=== PATIENT | male | born 1970 | race Caucasian/White ===

== ENCOUNTER 2022-10-19 14:30 | Emergency (ER) | payer OTHER, SELFPAY ==
[2022-10-19 14:46] VITALS: BP 128/84; PULSE 100; RESP 18; TEMP 37; O2SAT 97; BMI 34.8
--- NOTE | 2022-10-19 15:04 | XR_ITS ---
WS: [id number] Right hand, 3 views, 10/19/2022 Clinical Data: smash injury to 2nd digit Comparison: None. Findings: No fractures or dislocations are seen. The soft tissues are unremarkable. The joint space s are normal XR/XR hand RT min 3V* [id number] Impression: Negative right hand.
--- NOTE | 2022-10-19 15:05 | W.ED.EXTPRO ---
HPI - Extremity Problem General: Chief complaint: Extremity Injury, Upper Stated complaint: right finger lac Time Seen by Provider: 10/19/22 14:51 History of Present Illness: Patient is a 52-year-old male comes to the ED with right hand second digit injury. Patient says he smashed his right index finger in between his car and a ladder today. He has a laceration on the lateral aspect of finger. Endorses having right finger pain that worsens with any movement of finger. Associated symptoms: Deny chest pain, fever(s) or rash Review of Systems Const: Denies: fever(s), chills or fatigue Eyes: Denies: change in vision or eye discomfort ENMT: Denies: throat pain, odynophagia, nasal discharge or nasal congestion Card: Denies: chest pain, palpitations, edema, swelling of feet/ankles, dyspnea on exertion or orthopnea Resp: Denies: dyspnea, productive cough or non-productive cough GI: Denies: abdominal pain, nausea, vomiting, diarrhea, constipation or hematochezia : Denies: flank pain, difficulty urinating, dysuria or hematuria Musc: Denies: neck pain, back pain or extremity swelling Skin/Breast: Denies: rash or new lesions Neuro: Denies: headache(s), numbness in extremities or weakness in extremities PFSH ED PFSH: Medical History No pertinent family history Surgical History No pertinent past surgical history Physical Exam Const: COMMON NORMALS: no acute distress, patient oriented x3 and alert GENERAL APPEARANCE: cooperative and comfortable HENMT: COMMON NORMALS: normocephalic HEAD & SCALP: normocephalic MOUTH: Normal oral and palatal mucosa present THROAT: posterior oropharynx normal and uvula midline Neck/C-Spine: COMMON NORMALS: supple GENERAL: Yes normal visual inspection Resp: COMMON NORMALS: normal respiratory effort, No retractions, No use of accessory muscles and clear to auscultation bilaterally AUSCULTATION: clear to auscultation bilaterally Cardio: COMMON NORMALS: regular rate, regular rhythm, S1 normal heart sound present, S2 normal heart sound present, No gallops present (Cardio), No clicks present (Cardio), No murmurs present (Cardio) and Peripheral pulses 2+ throughout RATE: regular rate RHYTHM: regular rhythm HEART SOUNDS: S1 normal heart sound present and S2 normal heart sound present PERIPHERAL PULSES: Peripheral pulses 2+ throughout GI: COMMON NORMALS: Normal to inspection, nondistended, normoactive bowel sounds present, Soft to palpation, non-tender and no masses PALPATION: Yes Soft to palpation : COMMON NORMALS: Yes no CVA tenderness BLADDER/KIDNEY EXAM: Yes no CVA tenderness Back/Pelvis: COMMON NORMALS: no CVA tenderness Extremity: NARRATIVE EXTREMITY EXAM: Right hand?lateral aspect of second digit?2 cm linear laceration. Minimal active bleeding. Neurovascular tact distally. Limited range of motion in finger due to pain. No subungual hematoma noted. No nailbed or nail damage noted. Neuro: COMMON NORMALS: patient oriented x3 SENSORIUM/ORIENTATION: Yes alert GAIT: Yes Normal gait present Skin: GENERAL SKIN EXAM: dry skin Procedures Laceration Laceration 1: Site: hand (right hand 2nd digit) Side (If applicable): right Size (cm): 2 Description: linear Depth: simple, single layer Local Anesthetic: lidocaine 1% Pre-repair: irrigated extensively (With normal saline and beta iodine) Skin layer closed with: nylon Size (cm): 4-0 Number of sutures: 5 Technique: simple, interrupted Course Vital Signs: Vital signs: Vital Signs Temperature 98.6 F 10/19/22 14:46 Pulse Rate 100 10/19/22 14:46 Respiratory Rate 18 10/19/22 14:46 Blood Pressure 128/84 10/19/22 14:46 Pulse Oximetry 97 10/19/22 14:46 Oxygen Delivery [place] th[place] 10/19/22 14:46 MDM - Extremity (Nontraumatic) Medical Decision Making Patient is a 52-year-old male comes to the ED with right hand second digit injury. Patient says he smashed his right index finger in between his car and a ladder today. He has a laceration on the lateral aspect of finger. Vital stable. Right hand?lateral aspect of second digit?2 cm linear laceration. Minimal active bleeding. Neurovascular tact distally. Limited range of motion in finger due to pain. No subungual hematoma noted. No nailbed or nail damage noted. Patient was given updated tetanus here in the ED. Patient's wound was irrigated extensively with normal saline and beta iodine. Lidocaine 1% was used as local and 5 sutures were placed to close laceration on finger. X-ray of right hand showed no acute fractures or findings. Patient was diagnosed with finger laceration and contusion of finger and discharged home with a prescription for Keflex. Return to ED precautions given. Patient understood and agreed with plan. Lab Data Radiology Impressions Hand X-Ray 10/19/22 15:04 Impression: Negative right hand. Discharge Plan Discharge Patient Disposition: Home Clinical Impression: Contusion of finger Finger laceration Qualifiers: Encounter type: initial encounter Finger: index finger Damage to nail status: without damage Foreign body presence: without foreign body Laterality: right Qualified Code(s): S61.210A - Laceration without foreign body of right index finger without damage to nail, initial encounter Condition: Stable Prescriptions: New cephalexin 500 mg capsule 500 mg PO Q6H 7 Days Qty: 28 0RF Discharge Orders: Discharge ED (Routine); Ordered 10/19/22 Ordered By: Socrates De La Garza Discharge Diet: Regular Discharge Activity: Increase activity as tolerated Patient Instructions: Finger Laceration (ED) Activity Restrictions/Additional Instructions: Follow-up with medical provider as directed in the next 7 to 10 days for reevaluation. Clean laceration site daily with soap and water and then apply thin layer of triple antibiotic ointment on it and bandage. Have sutures removed in 7 to 10 days. Take medications as prescribed. Return to the ER or your medical provider if condition worsens. Please read and understand discharge instructions. Thank you for choosing [facility] for your healthcare needs today. Please realize this is an emergency room and that we are providing you with a medical screening exam and this may not be complete and all inclusive of all the testing and or work up that you may need to determine your ailment or severity of your illness. It is very important that you follow up as instructed or that you return to the Emergency Department should you have concerns or if your condition changes or worsens in any way. Coding Level of Care Code ED [employer] Worker for Michelle Rush Exam Comprehensive
[2022-10-19] MEDS: tetanus-diphtheria tox (adult) 0.5 mL SDV IM (15:39)
--- NOTE | 2022-10-27 15:33 | PC.NURSE ---
5 sutures removed from right index finger finger appears pt be healing well.
== END 2022-10-19 15:53 | disposition home or self-care (01) ==
PROVIDERS: Emergency Provider Physician Assistant
DX: S61.210A Laceration without foreign body of right index finger without damage to nail, initial encounter (principal); S60.021A Contusion of right index finger without damage to nail, initial encounter; W23.0XXA Caught, crushed, jammed, or pinched between moving objects, initial encounter; Z23 Encounter for immunization
CPT/HCPCS: 12001; 73130; 90471; 90714; 99283

== ENCOUNTER 2022-10-20 14:40 | Emergency (ER) | payer OTHER, SELFPAY ==
[2022-10-20 16:55] VITALS: BP 144/90; PULSE 86; RESP 18; TEMP 36.6; O2SAT 97; BMI 34.8
--- NOTE | 2022-10-20 17:14 | XRR_ITS ---
PROCEDURE INFORMATION: Exam: XR Right Finger(s) Exam date and time: 10/20/2022 5:35 PM Age: 52 years old Clinical indication: Pain; Finger(s); Right; Additional info: Crush injury to index finger TECHNIQUE: Imaging protocol: Radiologic exam of the Right fingers. Views: Minimum 2 views. COMPARISON: No relevant prior studies available. FINDINGS: Bones/joints: Osseous structures are intact. Negative for fracture. Joint spaces are preserved. Soft tissues: Normal. XR/XR finger RT min 2V [id number] IMPRESSION: No acute findings.
--- NOTE | 2022-10-20 17:20 | W.ED.EXTPRO ---
HPI - Extremity Problem General: Chief complaint: Extremity Injury, Upper Stated complaint: pain after finger injury Time Seen by Provider: 10/20/22 17:07 History of Present Illness: Patient is a 52-year-old male comes to the ED with right finger injury. Patient was seen here in the ED yesterday October 19 for same complaint. Patient had a crush injury of his index finger on right hand and had a laceration on finger as well which was treated with sutures. Today he says his fingers just been throbbing and pain and he rates it a 7 out of 10. He has been taking Tylenol and Motrin and it has not been helping his pain. His fingers are swollen and he has some limited range of motion in finger due to swelling. Associated symptoms: Deny chest pain, fever(s) or rash Review of Systems Const: Denies: fever(s), chills or fatigue Eyes: Denies: change in vision or eye discomfort ENMT: Denies: throat pain, odynophagia, nasal discharge or nasal congestion Card: Denies: chest pain, palpitations, edema, swelling of feet/ankles, dyspnea on exertion or orthopnea Resp: Denies: dyspnea, productive cough or non-productive cough GI: Denies: abdominal pain, nausea, vomiting, diarrhea, constipation or hematochezia : Denies: flank pain, difficulty urinating, dysuria or hematuria Musc: Reports: extremity pain (Right index finger) and extremity swelling (Right index finger); Denies: neck pain or back pain Skin/Breast: Denies: rash or new lesions Neuro: Denies: headache(s), numbness in extremities or weakness in extremities [facility] ED PFSH: Medical History No pertinent family history Surgical History No pertinent past surgical history Physical Exam Const: COMMON NORMALS: no acute distress, patient oriented x3 and alert GENERAL APPEARANCE: cooperative HENMT: COMMON NORMALS: normocephalic HEAD & SCALP: normocephalic MOUTH: Normal oral and palatal mucosa present THROAT: posterior oropharynx normal and uvula midline Neck/C-Spine: COMMON NORMALS: supple GENERAL: Yes normal visual inspection Resp: COMMON NORMALS: normal respiratory effort, No retractions, No use of accessory muscles and clear to auscultation bilaterally AUSCULTATION: clear to auscultation bilaterally Cardio: COMMON NORMALS: regular rate, regular rhythm, S1 normal heart sound present, S2 normal heart sound present, No gallops present (Cardio), No clicks present (Cardio), No murmurs present (Cardio) and Peripheral pulses 2+ throughout RATE: regular rate RHYTHM: regular rhythm HEART SOUNDS: S1 normal heart sound present and S2 normal heart sound present PERIPHERAL PULSES: Peripheral pulses 2+ throughout GI: COMMON NORMALS: Normal to inspection, nondistended, normoactive bowel sounds present, Soft to palpation, non-tender and no masses PALPATION: Yes Soft to palpation : COMMON NORMALS: Yes no CVA tenderness BLADDER/KIDNEY EXAM: Yes no CVA tenderness Back/Pelvis: COMMON NORMALS: no CVA tenderness Extremity: NARRATIVE EXTREMITY EXAM: Right index finger-I was the provider for patient yesterday and saw finger initially after injury. Laceration with 5 sutures and it appears to be healing well and no signs of any infection noted. Ecchymosis and swelling has improved since yesterday. No nailbed or nail damage noted. No subungual hematoma noted. Neuro: COMMON NORMALS: patient oriented x3 SENSORIUM/ORIENTATION: Yes alert GAIT: Yes Normal gait present Skin: GENERAL SKIN EXAM: dry skin Course Vital Signs: Vital signs: Vital Signs Temperature 98 F 10/20/22 16:55 Pulse Rate 86 10/20/22 16:55 Respiratory Rate 18 10/20/22 16:55 Blood Pressure 144/90 10/20/22 16:55 Pulse Oximetry 97 10/20/22 16:55 Oxygen Delivery [place] thod 10/20/22 16:55 MDM - Extremity (Nontraumatic) Medical Decision Making Patient is a 52-year-old male comes to the ED with right index finger pain. Patient was seen here in the ED for same complaint yesterday October 19. He was diagnosed with a contusion of index finger and laceration and sutures placed to close laceration. Patient says he is continue to have throbbing pain and Tylenol and ibuprofen was not cutting it. Vitals are stable.Right index finger-I was the provider for patient yesterday and saw finger initially after injury. Laceration with 5 sutures and it appears to be healing well and no signs of any infection noted. Ecchymosis and swelling has improved since yesterday. No nailbed or nail damage noted. No subungual hematoma noted. X-ray of right hand and finger showed no acute findings. Patient was diagnosed with contusion of finger and was discharged home with a prescription for couple hydrocodone to help with acute pain. Follow-up with PCP in the next week for reevaluation. Return to ED precautions given. Patient understood and agreed with plan. Lab Data Radiology Impressions Finger X-Ray 10/20/22 17:14 IMPRESSION: No acute findings. Discharge Plan Discharge Patient Disposition: Home Clinical Impression: Contusion of finger Condition: Stable Prescriptions: No Action cephalexin 500 mg capsule 500 mg PO Q6H 7 Days Qty: 28 0RF Discharge Orders: Discharge ED (Routine); Ordered 10/20/22 Ordered By: Socrates De La Garza Discharge Diet: Regular Discharge Activity: Increase activity as tolerated Patient Instructions: Opioid Safety Activity Restrictions/Additional Instructions: Follow-up with medical provider as directed. Take medications as prescribed. Return to the ER or your medical provider if condition worsens. Please read and understand discharge instructions. Thank you for choosing [facility] for your healthcare needs today. Please realize this is an emergency room and that we are providing you with a medical screening exam and this may not be complete and all inclusive of all the testing and or work up that you may need to determine your ailment or severity of your illness. It is very important that you follow up as instructed or that you return to the Emergency Department should you have concerns or if your condition changes or worsens in any way. Coding Level of Care Code ED Mother Repairer for Michelle Rush Exam Comprehensive
== END 2022-10-20 18:18 | disposition home or self-care (01) ==
PROVIDERS: Emergency Provider Physician Assistant
DX: S60.021A Contusion of right index finger without damage to nail, initial encounter (principal); X58.XXXA Exposure to other specified factors, initial encounter
CPT/HCPCS: 73140; 99283